=== PATIENT | male | born 1995 | race Caucasian/White ===

== ENCOUNTER 2022-05-20 06:26 | Emergency (ER) | payer MEDICAID ==
[~2022-05-20] VITALS: Ht 172.7 cm; Wt 68.0 kg
[2022-05-20 06:41] VITALS: BP 119/66
== END 2022-05-20 08:58 | disposition home or self-care (01) ==
LOC: ER 06:26
DX: Z00.00 Encounter for general adult medical examination without abnormal findings (principal); R56.9 Unspecified convulsions; Z59.00 Homelessness unspecified
CPT/HCPCS: 99283